=== PATIENT | female | born 1995 | race Hispanic/Latino ===

== ENCOUNTER 2025-05-19 22:02 | Observation (INO) | payer OTHER, SELFPAY ==
[2025-05-19] VITALS (7 sets, daily range): BP systolic 110–118; BP diastolic 70–77; PULSE 67–80; BMI 36.7
--- OUTSIDE RECORDS SUMMARY | 2025-05-19 22:10 | XMS_ITS | Clinical Summary ---
Author Organization [facility] Address [address] [place] [id number] Care Team Providers Care Counter Dish Carrier Name Role Phone None, Provider MD Primary Care Provider Unavaila ble Allergies Active Allergy Reactions Criticality Noted Date Comments Penicillins Hives 08/02/2022 Medications No known medications Active Problems Problem Noted Date Diagnosed Date Contact dermatitis, unspecif ied contact dermatitis type, unspecified trigger 08/02/2022 Estimated Date of Delivery Comme nts Yes 06/26/2025 Resolved Problems Problem Noted Date Diagnosed Date Resolved Date Fever with sore throat 02/09/202108/02 Social History Tobacco Use Types Packs/Day Years Used Date Smoking Tobacco: Never Smokeless Tobacco: Never PHQ-2 Answer Date Recorded PHQ-2 Score - If the patient scores above 3, please move on to questions 3-9 0 02/09/2021 Estimated Date of Delivery Comme nts Yes 06/26/2025 Sex and Gender Information Value Date Recorded Sex Assigned at Female 02/04/2025 10:36 PM CDT Legal Sex Female 12:01 PM CDT Gender Identity Not on file Sexual Orientation Not on file Last Filed Vital Signs Vital Sign Reading Time Taken Comments Blood Pressure 102/63 02/04/2025 10:17 PM CDT Pulse 83 02/04/2025 10:17 PM CDT Temperature 36.2 C (97.2 F) 02/04/2025 10:17 PM CDT Respiratory Rate 20 02/04/2025 10:17 PM CDT Oxygen Saturation 99% 02/04/2025 10:17 PM CDT Inhaled Oxygen Concentration - - Weight 83.6 kg (184 lb 4.9 oz) 02/04/2025 10:17 PM CDT Height 165.1 cm (5' 5) 02/04/2025 10:17 PM CDT Body Mass Index 30.67 02/04/2025 10:17 PM CDT Plan of Treatment Health Maintenance Due Date Last Done Comments Cervical Cancer Screening Pa p Smear (Age 21 to 29) Every 3 Years 1996 Cervical Cancer Screening 1996 Annual Physical 1999 Hepatitis C 2014 DTaP, Tdap and Td Vaccines ( 1 - Tdap) 2015 Hepatitis B Vaccines (1 of 3 - 19+ 3-dose series) 2015 HPV Vaccines (1 - 3-dose SCD M series) 2023 COVID-19 Vaccine (1 - 2023-2 5 season) 2024 Meningococcal B Vaccine Aged Out No l onger eligible based on patient's age to complete this topic Meningococcal Vaccine Aged Out No justin marjan eligible based on patient's age to complete this topic Pneumococcal Vaccine: Pediat rics (0 to 5 Years) and At-Risk Patients (6 to 49 Years) Aged Out No longer eligible b ased on patient's age to complete this topic RSV Immunization or 60+ Years (No Doses Required) Completed RSV Immunizations Under 20 Months Aged Out No longer eligible based on patient's age to complete this topic Insurance GENERIC - COMMERCIAL [facility] Care Teams Counter Dish Carrier Relationship Specialty Start Date End Date None, Provider, PCP - General UNKNOWN PHYSICIAN SPECIALTY 08/02/22
--- OUTSIDE RECORDS SUMMARY | 2025-05-19 22:10 | XMS_ITS | Clinical Summary ---
Author Organization [employer] [facility] [address] Address [address] [place] [address] Care Team Providers Care Neon Light Installer Name Role Phone Unavailable Primary Care Provider Unavailabl e Allergies No known active allergies Medications No known medications Active Problems Estimated Date of Delivery Comme nts Yes 06/26/2025 Date entered mario or to episode creation No known active problems Encounters Date Type Department Care Team Description 05/15/2025 External Device Data STL ABSTRACTION Provider, Abstract 05/14/2025 External Device Data STL ABSTRACTION Provider, Abstract 04/24/2025 External Device Data STL ABSTRACTION Provider, Abstract 04/24/2025 External Device Data STL ABSTRACTION Provider, Abstract 04/09/2025 External Device Data STL ABSTRACTION Provider, Abstract 03/15/2025 1:56 PM CDT - 03/15/2025 11:59 PM CDT Hospital Encounter [facility] [address] [facility] [place] [id number] Nohemi Steward MD Discharge Disposition: Home or Self Care from Last 3 Months Family History Medical History Relation Name Comments Diabetes Maternal Grandmother Lisa Sow Relation Name Status Comments Maternal Grandmother Lisa Sow Alive Social History Tobacco Use Types Packs/Day Years Used Date Smoking Tobacco: Never Smokeless Tobacco: Never Tobacco Cessation:Counseling Given: Not Answered Alcohol Use Standard Drinks/Week Comments Never 0 (1 standard drink = 0.6 oz pur e alcohol) Estimated Date of Delivery Comme nts Yes 06/26/2025 Date entered mario or to episode creation Sex and Gender Information Value Date Recorded Sex Assigned at Not on file Legal Sex Female 8:54 AM CERTIFIED PROFESSIONAL MIDWIFE Gender Identity Not on file Sexual Orientation Not on file Last Filed Vital Signs Vital Sign Reading Time Taken Comments Blood Pressure 94/70 12/13/2024 3:37 PM CERTIFIED PROFESSIONAL MIDWIFE Pulse 87 12/13/2024 3:37 PM CERTIFIED PROFESSIONAL MIDWIFE Temperature 36.4 C (97.6 F) 11/14/2024 9:03 AM CERTIFIED PROFESSIONAL MIDWIFE Respiratory Rate - - Oxygen Saturation 98% 12/13/2024 3:37 PM CERTIFIED PROFESSIONAL MIDWIFE Inhaled Oxygen Concentration - - Weight 81.6 kg (180 lb) 12/13/2024 3:37 PM CERTIFIED PROFESSIONAL MIDWIFE Height 162.6 cm (5' 4) 12/13/2024 3:37 PM CERTIFIED PROFESSIONAL MIDWIFE Body Mass Index 30.9 12/13/2024 3:37 PM CERTIFIED PROFESSIONAL MIDWIFE Plan of Treatment Health Maintenance Due Date Last Done Comments HPV VACCINES (1 - 3-dose series) 2011 DTAP/TDAP/TD VACCINES (1 - Tdap) 2015 HEPATITIS B VACCINES (1 of 3 - 19+ 3-dose series) 04/2015 CERVICAL CANCER SCREENING 2017 HPV/Cotest (21-29) 2017 PAP SMEAR 2017 INFLUENZA VACCINE (#1) 2025 RSV VACCINE (60+ or ) (No Doses Required) Comp leted Procedures Procedure Name Priority Date/Time Associated Diagnosis Comments US OB FOLLOW UP PER FETUS Routine 03/15/2025 2:44 PM CDT Obesity affecting in second trimester, unspecified obesity type from Last 3 Months Results * US OB FOLLOW UP PER FETUS (03/15/2025 2:44 PM CDT) Anatomical Region Laterality Modality Pelvis Ultrasound 03/15/2025 2:12 PM CDT Narrative 03/15/2025 2:41 PM CDT STL FOLLOW UP ----- Pat. Name: ARIELLA CHEUNG Study Date: 03/15/2025 2:12pm Pat. NO: [id number] Referring MD: DIAN CRAIG MD Site: [facility] Refueling Rampman: Yuki Vickers RDMS : 1995 Age: 29 ----- INDICATION ----- Maternal Obesity (BMI<40) Complicating CODING ----- Diagnoses Z3A.25: Weeks of gestation O99.212: Obesity complicating Procedures 26868: Ultrasound, uterus, real time with image documentation, follow up, transabdominal approach per fetus HISTORY ----- OB History 1. Para 0 MATERNAL ASSESSMENT ----- Physical Exam Weight 82 kg. BMI 30.90 kg/m METHOD ----- Transabdominal ultrasound examination ----- Gutierrez . Number of fetuses: 1 DATING ----- LMP on: 08/30/2024 GA by LMP 28 w + 1 d CHRISTOPHER by LMP: 06/06/2025 GA by prior assessment 25 w + 2 d CHRISTOPHER by prior assessment: 06/26/2025 Ultrasound examination on: 03/15/2025 GA by U/S based upon: AC, BPD, EFW, Femur, HC GA by U/S 25 w + 4 d CHRISTOPHER by U/S: 06/24/2025 Method of dating: Restore dating from previous exam Assigned: based on ultrasound (CRL), selected on 11/14/2024 Assigned GA 25 w + 2 d Assigned CHRISTOPHER: 06/26/2025 BIOMETRY ----- BPD 64.5 mm 26w 1d 69% Hadlock OFD 84.1 mm 27w 2d 95% Corrie HC 238.9 mm 26w 0d 52% Hadlock Cerebellum tr 29.6 mm 27w 1d 86% Wright AC 210.2 mm 25w 4d 50% Hadlock Femur 45.8 mm 25w 1d 33% Hadlock HC / AC 1.14 59% Nicolaides Weight Calculation: EFW 816 g 25w 2d 48% Hadlock EFW (lb,oz) 1 lb 13 oz EFW by Hadlock (CPM-CH-EP-FL) Head / Face / Neck Biometry: Architectural Design Lecturer 3.7 mm CM 4.1 mm 4% Nicolaides Extremities / Bony Struc Biometry: FL / BPD 0.71 FL / HC 0.19 FL / AC 0.22 GENERAL EVALUATION ----- Cardiac activity present. FHR 150 bpm. movements: present. Presentation: transverse Placenta: Placental site: anterior Umbilical cord: Cord vessels: 3 vessel cord. Insertion site: placental insertion: normal Amniotic fluid: Amount of AF: normal amount. MVP 4.4 cm. NBA 15.4 cm. Q1 3.4 cm, Q2 3.5 cm, Q3 4.4 cm, Q4 4.1 cm ANATOMY ----- Heart / Thorax 4-chamber view: LT EIF LVOT view: EIF The following structures appear normal: Head / Neck Cranium. Lateral ventricles. Choroid plexus. Midline falx. Cavum septi pellucidi. Cerebellum. Cisterna magna. Heart / Thorax RVOT view. 3-vessel view. Aortic arch view. Bicaval view. High short axis view. Diaphragm. Abdomen Cord insertion. Stomach. Kidneys. Bladder. GROWTH OVERVIEW ----- Exam date GA BPD (mm) HC (mm) AC (mm) FL (mm) HL (mm) EFW (g) 02/13/2025 21w 0d 50.7 64% 191.4 59% 157.7 40% 33.6 26% 380 36% 03/15/2025 25w 2d 64.5 69% 238.9 52% 210.2 50% 45.8 33% 816 48% COMMENT ----- Patient's name and date of were verified by the glove pairer prior to the exam IMPRESSION ----- Impression: - Gutierrez viable intrauterine at 25w 2d in transverse presentation. - Estimated weight is 816 g (48%ile) with abdominal circumference at the 50%ile - Amniotic fluid volume is normal (Amniotic fluid index = 15.4 cm, maximum vertical pocket = 4.4 cm) - Anatomic survey is complete. No major malformations identified within the limitations of ultrasound. - Echogenic focus in the left ventricle An isolated echogenic intracardiac focus (EIF) is a small echogenic area appearing within the cardiac ventricle that has a sonographic brightness equivalent to that of bone. EIF is believed to be a calcification of the ventricular papillary muscle or chordae tendinae and is seen in at least 3-5% of second trimester ultrasound evaluations. When encountered in isolation, EIF is associated with a 1.4-1.8-fold increase in the likelihood of Trisomy 21 over a patient's age-related risk. EIF is seen in 5% of euploid fetuses and in up to 30% of fetuses with Trisomy 21. No other significant associations have been described. EIF is not considered a cardiac malformation, therefore neither echocardiography nor serial ultrasounds are recommended for this indication. The Society for Maternal Medicine has suggested offering aneuploidy screening to women with the finding of isolated EIF. In the setting of low risk NIPT, no additional testing is recommended. Recommendations: - Consider NIPT if patient desires - Follow up as clinically indicated. - Consider follow up US for growth and anatomy at 32 weeks. Thank you for inviting us to participate in your patient's care. Procedure Note Floridalma Corley MD - 03/15/2025 STL FOLLOW UP ----- Pat. Name:Beto CHEUNG Date:03/15/2025 2:12pm Pat. NO: [id number] MD:DIAN CRAIG MD [facility]:Yuki Vickers RDMS :1995Age:29 ----- INDICATION ----- Maternal Obesity (BMI<40) Complicating CODING ----- Diagnoses Z3A.25: Weeks of gestation O99.212: Obesity complicating Procedures 38244: Ultrasound, uterus, real time withimage documentation, follow up, transabdominal approach per fetus HISTORY ----- OB History 1. Para 0 MATERNAL ASSESSMENT ----- Physical Exam Weight 82 kg. BMI 30.90 kg/m METHOD ----- Transabdominal ultrasound examination ----- Gutierrez . Number of fetuses: 1 DATING ----- LMP on:08/30/2024 GA by LMP28 w + 1 d CHRISTOPHER by LMP:06/06/2025 GA by prior numfmpipia59 w + 2 d CHRISTOPHER by prior assessment:06/26/2025 Ultrasound examination on:03/15/2025 GA by U/S based upon:AC, BPD, EFW, Femur, HC GA by U/S25 w + 4 d CHRISTOPHER by U/S:06/24/2025 Method of dating:Restore dating from previous exam Assigned:based on ultrasound (CRL), selected on 11/14/2024 Assigned GA25 w + 2 d Assigned CHRISTOPHER:06/26/2025 BIOMETRY ----- BPD 64.5 mm 26w 1d69% Hadlock OFD 84.1 mm 27w 2d95% Corrie HC 238.9 mm 26w 0d52% Hadlock Cerebellum tr 29.6 mm 27w 1d86% Wright AC 210.2 mm 25w 4d50% Hadlock Femur 45.8 mm 25w 1d33% Hadlock HC / AC 1.14 59%Nicolaides Weight Calculation: EFW 816 g 25w 2d 48%Hadlock EFW (lb,oz) 1 lb 13 oz EFW by Hadlock (YFN-HB-CN-FL) Head / Face / Neck Biometry: Architectural Design Lecturer 3.7 mm CM 4.1 mm 4%Nicolaides Extremities / Bony Struc Biometry: FL / BPD 0.71 FL / HC 0.19 FL / AC 0.22 GENERAL EVALUATION ----- Cardiac activity present. FHR 150 bpm. movements: present.Presentation: transverse Placenta: Placental site: anterior Umbilical cord: Cord vessels: 3 vessel cord. Insertion site: placentalinsertion: normal Amniotic fluid: Amount of AF: normal amount. MVP 4.4 cm. NBA 15.4 cm. Q13.4 cm, Q2 3.5 cm, Q3 4.4 cm, Q4 4.1 cm ANATOMY ----- Heart / Thorax 4-chamber view: LT EIF LVOT view: EIF The following structures appear normal: Head / Neck Cranium. Lateral ventricles. Choroid plexus.Midline falx. Cavum septi pellucidi. Cerebellum. Cisterna magna. Heart / Thorax RVOT view. 3-vessel view. Aortic arch view.Bicaval view. High short axis view. Diaphragm. Abdomen Cord insertion. Stomach. Kidneys. Bladder. GROWTH OVERVIEW ----- Exam date GA BPD (mm) HC (mm) AC (mm) FL(mm) HL (mm) EFW (g) 02/13/2025 21w 0d 50.7 64% 191.4 59% 157.7 40%33.6 26% 380 36% 03/15/2025 25w 2d 64.5 69% 238.9 52% 210.2 50%45.8 33% 816 48% COMMENT ----- Patient's name and date of were verified by the glove pairer prior tothe exam IMPRESSION ----- Impression: - Gutierrez viable intrauterine at 25w 2d in transversepresentation. - Estimated weight is 816 g (48%ile) with abdominal circumference atthe 50%ile - Amniotic fluid volume is normal (Amniotic fluid index = 15.4 cm, maximumvertical pocket = 4.4 cm) - Anatomic survey is complete. No major malformations identified withinthe limitations of ultrasound. - Echogenic focus in the left ventricle An isolated echogenic intracardiac focus (EIF) is a small echogenic areaappearing within the cardiac ventricle that has a sonographic brightness equivalent to that of bone. EIF is believed to be acalcification of the ventricular papillary muscle or chordae tendinae and is seen in at least 3-5% of second trimesterultrasound evaluations. When encountered in isolation, EIF is associated with a 1.4-1.8-fold increase in the likelihood of Trisomy 21over a patient's age-related risk. EIF is seen in 5% of euploid fetuses and in up to 30% of fetuses with Trisomy 21. No othersignificant associations have been described. EIF is not considered a cardiac malformation, therefore neither fetalechocardiography nor serial ultrasounds are recommended for this indication. The Society for Maternal Medicine has suggested offeringaneuploidy screening to women with the finding of isolated EIF. In the setting of low risk NIPT, no additional testing isrecommended. Recommendations: - Consider NIPT if patient desires - Follow up as clinically indicated. - Consider follow up US for growth and anatomy at 32 weeks. Thank you for inviting us to participate in your patient's care. us Nohemi Steward MD ORDERABLES Final Result from Last 3 Months Insurance [facility]
[2025-05-19 22:46] LABS: Add Urine Microscopic? YES; Appearance Urine Clear (Clear); Glucose Urine UA Negative (Negative); Leukocyte Esterase Ur Negative LEU/UL (Negative); Nitrate Urine Negative (Negative); Non Pathogenic Casts 0-2; Specific Grav Ur 1.006 (1.001-1.035)
--- NOTE | 2025-05-19 23:59 | OBADM ---
This patient, Elle Soler, admitted to the OB room OB Post 117 for observation. Patient/family oriented to hospital policies and general routines including ID bracelet, bed and alarms, visiting hours, pain management, procedures, bathroom and other care routines, personal items, smoking policy, room service/diet, and visiting hours. Patient/Family are encouraged to report perceived risks to care and to ask questions if they do not understand what they are told or what they should do.
--- NOTE | 2025-06-11 09:15 | PM.OBTRLD ---
OB - Triage/Final Diagnosis Visit Information Comments/Additional reasons for admission: I have assessed the risk for this patient, Elle Galvan Adam Soler, and determined that she would benefit from observation care. Evaluation Laboratory results: Laboratory Tests 05/19/25 22:33 Urine Color Yellow Urine Appearance Clear Urine pH 6.0 Ur Specific [place] 1.006 Urine Protein Negative Urine Glucose (UA) Negative Urine Ketones Negative Ur Blood (Man) 3+ H Urine Nitrate Negative Urine Bilirubin Negative Urine Urobilinogen 0.2 Leukocyte Esterase Rfl Negative Urine RBC 0-2 Urine WBC 0-5 Ur Squamous Epith Cells None seen Urine Bacteria None seen Urine Casts 0-2 Final Diagnosis (1) Hematuria: Code(s): R31.9 - Hematuria, unspecified Status: Acute
== END 2025-05-20 00:24 | disposition home or self-care (01) ==
PROVIDERS: Admitting Provider Obstetrics & Gynecology; Visit Provider Obstetrics & Gynecology
DX: O99.891 Other specified diseases and conditions complicating pregnancy (principal); R31.9 Hematuria, unspecified; Z3A.34 34 weeks gestation of pregnancy
CPT/HCPCS: 81001; 99199; G0378; G0379

== ENCOUNTER 2025-06-12 13:06 | Outpatient (CLI) | payer OTHER, SELFPAY ==
--- NOTE | ~2025-06-12 | US_ITS ---
EXAMINATION: US OB follow up DATE: 06/12/2025 13:25 INDICATION: Intrauterine growth retardation during third trimester . TECHNIQUE: Real-time ultrasound of the pelvis was performed. The interpreting radiologist was not present for the study. COMPARISON: None. FINDINGS: There is a single living fetus in vertex presentation. The placenta is anterior and not low-lying. heart rate is 124 beats per minute (bpm). The amniotic fluid index is 8.0 cm, which is normal. (5th%-95%: 7.3-23.9 cm at 38 weeks estimated gestational age). The following biometric data were obtained: BPD: 9.0 cm -> 36 weeks 3 days Head circumference: 31.4 cm -> 35 weeks 1 days Abdominal circumference: 32.1 cm -> 36 weeks 0 days Femur length: 7.4 cm -> 37 weeks 4 days Borderline increased cephalic index of 86.9 (normal 70-86). Head circumference to abdominal circumference ratio: 0.98 (normal range 0.92-1.07). Estimated weight: 2926 g (+/-) 439 g or 6 lbs. 7 oz. (+/-) 15 oz. IMPRESSION: 1. Single living fetus in vertex presentation with heart rate of 124 bpm. 2. Gestational age by ultrasound of 36 weeks 2 day(s) +/- 2 week(s) 4 day(s) with ultrasound estimated date of delivery (CHRISTOPHER) of 07/08/2025. Estimated weight is 23rd percentile by Hadlock criteria when 06/26/2025 is used as the CHRISTOPHER. Please correlate with clinical information or earlier ultrasounds for most accurate CHRISTOPHER. 3. Low-normal amniotic fluid index of 8.0 cm. 4. Borderline brachycephaly with cephalic index of 86.9. Reviewed, dictated and finalized at location A. IMPRESSION: 1. Single living fetus in vertex presentation with heart rate of 124 bpm. 2. Gestational age by ultrasound of 36 weeks 2 day(s) +/- 2 week(s) 4 day(s) wi th ultrasound estimated date of delivery (CHRISTOPHER) of 07/08/2025. Estimated we ight is 23rd percentile by Hadlock criteria when 06/26/2025 is used as the CHRISTOPHER. Please correlate with clinical information or earlier ultrasounds for most accu rate CHRISTOPHER. 3. Low-normal amniotic fluid index of 8.0 cm. 4. Borderline brachycephaly with cephalic index of 86.9.
== END 2025-06-12 13:07 | disposition home or self-care (01) ==
LOC: GOSHIMG 13:07
PROVIDERS: PCP Obstetrics & Gynecology; Visit Provider Obstetrics & Gynecology
DX: O36.5990 Maternal care for other known or suspected poor fetal growth, unspecified trimester, not applicable or unspecified (principal); Z3A.00 Weeks of gestation of pregnancy not specified
CPT/HCPCS: 76816

== ENCOUNTER 2025-06-13 12:41 | Outpatient (RCR) | payer OTHER, SELFPAY ==
[2025-06-13 14:34] VITALS: BP 124/79; PULSE 84
== END 2025-06-22 11:23 | disposition other institution (70) ==
LOC: ANHOBOP 12:41
PROVIDERS: Visit Provider Obstetrics & Gynecology
DX: O36.5990 Maternal care for other known or suspected poor fetal growth, unspecified trimester, not applicable or unspecified (principal)
CPT/HCPCS: 59025

== ENCOUNTER 2025-06-17 11:30 | Inpatient (IN) | payer OTHER, SELFPAY ==
[2025-06-17] VITALS (124 sets, daily range): BP systolic 90–167; BP diastolic 43–116; PULSE 65–161; RESP 17; TEMP 36.4–37.4; O2SAT 88–100; BMI 37.0
--- OUTSIDE RECORDS SUMMARY | 2025-06-17 13:05 | XMS_ITS | Clinical Summary ---
Author Organization [facility] Address [address] [place] [address] Care Team Providers Care Front Office Secretary Name Role Phone None, Provider MD Primary [...] COVID-19 Vaccine (1 - 2023-2 5 season) 2025 Meningococcal B Vaccine Aged Out No l [...] complete this topic Insurance GENERIC - COMMERCIAL [facility] Care Teams Front Office Secretary Relationship Specialty Start Date End Date None, Provider, PCP - General UNKNOWN PHYSICIAN SPECIALTY 08/02/22
--- OUTSIDE RECORDS SUMMARY | 2025-06-17 13:05 | XMS_ITS | Clinical Summary ---
Author Organization [employer] [address] [place] [address] Address [address] [place] [address] Care Team Providers Care Shuttle Van Driver Name Role Phone Unavailable Primary Care Provider [...] External Device Data STL ABSTRACTION Provider, Abstract from Last 3 Months Family History Medical [...] on file Legal Sex Female 8:54 AM WOODWIND REEDS CUTTER Gender Identity Not on file Sexual Orientation Not on file Last Filed Vital Signs Vital Sign Reading Time Taken Comments Blood Pressure 94/70 12/13/2024 3:37 PM WOODWIND REEDS CUTTER Pulse 87 12/13/2024 3:37 PM WOODWIND REEDS CUTTER Temperature 36.4 C (97.6 F) 11/14/2024 9:03 AM WOODWIND REEDS CUTTER Respiratory Rate - - Oxygen Saturation 98% 12/13/2024 3:37 PM WOODWIND REEDS CUTTER Inhaled Oxygen Concentration - - Weight 81.6 kg (180 lb) 12/13/2024 3:37 PM WOODWIND REEDS CUTTER Height 162.6 cm (5' 4) 12/13/2024 3:37 PM WOODWIND REEDS CUTTER Body Mass Index 30.9 12/13/2024 3:37 PM WOODWIND REEDS CUTTER Plan of Treatment Health Maintenance Due Date Last Done Comments DTAP/TDAP/TD VACCINES (1 - Tdap) 2015 HEPATITIS B VACCINES (1 of 3 - 19+ 3-dose series) 04/2015 CERVICAL CANCER SCREENING 2017 HPV/Cotest (21-29) 2017 PAP SMEAR 2017 HPV VACCINES (1 - 3-dose SCDM series) 2023 INFLUENZA VACCINE (#1) 2025 RSV VACCINE (60+ or ) (No Doses Required) Comp leted Insurance [facility] [employer]
--- NOTE | 2025-06-17 13:33 | LDADM ---
This patient, Elle Soler, was admitted to Labor/Delivery/Recovery 102 on 06/17/25 at 11:30. Plans for labor, pain management and were discussed with patient. Patient/family oriented to hospital policies and general routines including ID bracelet, bed and alarms, visiting hours, pain management, procedures, bathroom and other care routines, personal items, smoking policy, room service/diet and guest tray routines, security routines, and visiting hours. Patient/Family are encouraged to report perceived risks to care and to ask questions if they do not understand what they are told or what they should do. See OBIX for further documentation.
[2025-06-17 13:43] LABS: Hematocrit 34.6 % (37.0-47.0); Hemoglobin 11.0 g/dL (12.0-15.0); Immature Granulocyte Percent A 0.4 % (0-0.5); Lymphocytes Absolute Auto 1.30 K/mm3 (0.9-3.2); Mean Corpuscular HGB Conc 31.8 g/dl (32-36); Mean Corpuscular Hemoglobin 26.7 pg (26-34); Mean Corpuscular Volume 84.0 fl (80-100); Nucleated Red Blood Cells Absolute Auto 0.000 K/mm3 (0.0-0.012); Nucleated Red Blood Cells Perc 0.0 % (0.0-0.2); Platelet Count Result 235 k/mm3 (150-375); Red Blood Count 4.12 M/mm3 (4.2-5.4); White Blood Count 8.2 K/mm3 (4.5-10.0)
[2025-06-17] MEDS: LACTATED RINGERS 1,000 ML 125 ML IV CONT ×2 (14:27→16:13)
[2025-06-17 14:35] LABS: Syphilis IgG/IgM Antibody Non-Reactive (Nonreactive)
--- NOTE | 2025-06-17 15:02 | P.HP_ITS ---
H&P: HPI History of Present Illness Date/Time: 06/17/25 15:02 Chief Complaint: Contractions Narrative: 30 y/o G1 at 38 5/7 weeks here with contractions. Cervix 4 cm dilated, has been admitted for labor. GBS neg. First bp was 130/99. She has no headache, upper abdominal pain, or visual field changes. Review of Systems Review of Systems: All systems reviewed & are unremarkable except as noted in HPI and below PMFSH Family History Family History Mother Diabetes mellitus Sibling Lupus Social History Social History Smoking status: Never smoker Alcohol intake: never Substance use: never Substance use type: does not use Lack of Transportation: No Lack of Food: Never True Current Housing: I Have Housing Concerned About Future Housing: No Difficulty Paying Gas/Electric Bills: No Difficulty Paying for Meds: No Currently Unemployed: No Education: Bachelor's Degree Difficulty w/ Childcare or Family Care: No Spiritual care concerns: No Meds Home Medications and Allergies Home Medications ?Medication ?Instructions ?Recorded ?Confirmed ?Type No Home Medications 06/13/25 06/17/25 H istory Allergies Allergy/AdvReac Type Severity Reaction Status Date / Time Penicillins Allergy Mild unknown Verified 06/13/25 12:12 Vital Signs Vital Signs - 24 hr 06/17/25 13:01 06/17/25 13:32 06/17/25 13:45 Temperature 99.4 F Pulse Rate 85 Blood Pressure 134/99 H Oxygen Delivery Room Air 06/17/25 14:02 06/17/25 14:31 06/17/25 15:01 Temperature Pulse Rate 88 91 83 Blood Pressure 134/90 137/85 139/92 H Oxygen Delivery Exam Const: Other: Well-developed, well-nourished female in no acute distress. Neck: Other: Neck: Trachea midline, no thyromegaly or masses. Resp: Other: Lungs: Normal respiratory effort. Clear to auscultation bilaterally. Cardio: Other: Heart: Regular rate and rhythm with normal S1-S2. GI: Other: ABD: Soft, nontender, nondistended, gravid. No guarding or rebound tenderness. No hepatosplenomegaly. NST reactive initially, but has just shown a couple variables. TOCO: irregular contractions. : Other: Cervix: 5/80/-2. AROM with meconium-stained fluid. Vertex. IUPC placed. Back/Spine/Pelvis: Other: Back: No CVA tenderness. Skin: Other: Skin: No lesions, rashes or ulcers noted. Extrem: Other: Extremities: nontender with no edema Psych: Other: Mental status grossly normal, with normal mood and affect. H&P: Results Labs Labs: Short CBC 06/17/25 Range/Units 13:07 WBC 8.2 (4.5-10.0) K/mm3 Hgb 11.0 L (12.0-15.0) g/dL Hct 34.6 L (37.0-47.0) % Plt Count 235 (150-375) k/mm3 Assessment and Plan Assessment and plan (1) Term : Code(s): Z34.90 - Encounter for supervision of normal , unspecified, unspecified trimester Status: Acute Assessment and Plan: A: IUP at 38 5/7 weeks with labor. P: IUPC placed. Peds aware of meconium. Will monitor. Expectant management for now. (2) Active labor at term: Status: Acute
[2025-06-17 15:56] LABS: Alanine Aminotransferase 17 U/L (6-35); Albumin Level 3.1 g/dL (3.5-5.1); Alkaline Phosphatase 153 U/L (38-126); Anion Gap 4 mmol/L (4-12); Aspartate Amino Transferase 24 U/L (14-36); Bilirubin,Total < 0.1 mg/dL (0.2-1.3); Blood Urea Nitrogen 14 mg/dL (7-17); Calcium 8.9 mg/dL (8.4-10.2); Carbon Dioxide 22 mmol/L (22-30); Chloride 105 mmol/L (98-107); Estimated CRCL calculation 123 ml/min; Estimated Glomerular Filt Rate > 60; Glucose 84 mg/dL (65-110); Potassium 4.1 mmol/L (3.4-5.0); Sodium 131 mmol/L (137-145); Total Protein 6.1 g/dL (6.3-8.2); Uric Acid 5.8 mg/dL (2.5-7.5)
--- NOTE | 2025-06-17 16:25 | P.PNAN_ITS ---
Anes - Initial Pre Proc Eval Procedure: labor epidural Date/Time: 06/17/25 16:25 Surgeon: Esdras Martinez MD Pre Op Diagnosis: labor pain Pre Op Diagnosis: contractions Patient Data Age: 30 Gender: F Height: 1.63 m Weight: 98 kg Last Vital Signs Temp 37.4 C 06/17/25 15:00 Pulse 84 06/17/25 16:24 BP 152/91 H 06/17/25 16:24 Pulse Ox 99 06/17/25 16:24 O2 Del Method Room Air 06/17/25 13:32 Allergies Allergy/AdvReac Type Severity Reaction Status Date / Time Penicillins Allergy Mild unknown Verified 06/13/25 12:12 Home Medications ?Medication ?Instructions ?Recorded ?Confirmed ?Type No Home Medications 06/13/25 06/17/25 H istory Laboratory Tests 06/17/25 06/17/25 13:07 15:20 WBC 8.2 K/mm3 (4.5-10.0) RBC 4.12 L M/mm3 (4.2-5.4) Hgb 11.0 L g/dL (12.0-15.0) Hct 34.6 L % (37.0-47.0) MCV 84.0 fl (80-100) MCH 26.7 pg (26-34) MCHC 31.8 L g/dl (32-36) RDW 14.3 % (11.5-14.5) Plt Count 235 k/mm3 (150-375) MPV 12.5 H fl (7.4-10.4) Immature Gran % (Auto) 0.4 % (0-0.5) Neut % (Auto) 76.3 H % (45.5-73.1) Lymph % (Auto) 15.9 L % (18.3-44.2) [place] % (Auto) 6.2 % (2.6-8.5) Eos % (Auto) 0.7 % (0-4.4) Baso % (Auto) 0.5 % (0.2-1.2) Lymph # (Auto) 1.30 K/mm3 (0.9-3.2) [place] # (Auto) 0.5 K/mm3 (0.1-0.6) Eos # (Auto) 0.1 K/mm3 (0-0.3) Baso # (Auto) 0.0 K/mm3 (0.0-0.1) Abs Immat Gran (auto) 0.03 K/mm3 (0.00-0.031) Absolute Neuts (auto) 6.3 K/mm3 (1.3-6.7) Absolute Nucleated RBC 0.000 K/mm3 (0.0-0.012) Nucleated RBC % 0.0 % (0.0-0.2) Sodium 131 L mmol/L (137-145) Potassium 4.1 mmol/L (3.4-5.0) Chloride 105 mmol/L (98-107) Carbon Dioxide 22 mmol/L (22-30) Anion Gap 4 mmol/L (4-12) BUN 14 mg/dL (7-17) Creatinine 0.66 L mg/dL (0.7-1.0) Estim Creat Clear Calc 123 ml/min Estimated GFR > 60 (59 - ) Glucose 84 mg/dL (65-110) Uric Acid 5.8 mg/dL (2.5-7.5) Calcium 8.9 mg/dL (8.4-10.2) Total Bilirubin < 0.1 L mg/dL (0.2-1.3) AST 24 U/L (14-36) ALT 17 U/L (6-35) Alkaline Phosphatase 153 H U/L (38-126) Total Protein 6.1 L g/dL (6.3-8.2) Albumin 3.1 L g/dL (3.5-5.1) Syphilis IgG/IgM Ab Non-reactive (Nonreactive) Blood Type O Positive Antibody Screen Negative Patient hx anesthesia problems: none Family hx anesthesia problems: none Results Review: All pre-operative results and documents have been reviewed as part of the pre- operative evaluation. [facility] Family History Family History Mother Diabetes mellitus Sibling Lupus Social History Social History Smoking status: Never smoker Alcohol intake: never Substance use: never Substance use type: does not use Lack of Transportation: No Lack of Food: Never True Current Housing: I Have Housing Concerned About Future Housing: No Difficulty Paying Gas/Electric Bills: No Difficulty Paying for Meds: No Currently Unemployed: No Education: Bachelor's Degree Difficulty w/ Childcare or Family Care: No Spiritual care concerns: No Anes - Eval Final PreProcedure Day of Procedure 06/17/25 16:25 Patient weight: obese ASA classification: II Anesthetic plan: proceed Anesthesia type and monitoring: regional epidural and standard monitoring Results Review: All pre-operative results and documents have been reviewed as part of the pre- operative evaluation. Informed Consent: The patient's anesthetic plan and its attendant risks and benefits were discussed with the patient/family/POA. Questions were solicited and answers provided to the satisfaction of the patient/family/POA.
--- NOTE | 2025-06-17 17:23 | P.PNOB_ITS ---
Pain Control Date/time seen: 06/17/25 17:23 Pain control: epidural Pelvic Exam Dilation (cm): 5 Effacement (%): 80 station: -2 Contractions Contraction pattern: Irregular Status Comments: Reactive with occasional mild variables. Assessment and Plan Plan: continuous present management Comments: Dr. Saab is program manager environmental planning tonight. I have discussed the patient's care with him, and the patient is aware he will be covering.
[2025-06-17] MEDS: OXYTOCIN 30 UNITS/NS 500 ML 30 UNITS/500 ML BAG IV CONT (19:26)
[2025-06-17] MEDS: OXYTOCIN 30 UNITS/NS 500 ML 30 UNITS/500 ML BAG 999 UNITS IV CONT (21:08)
--- NOTE | 2025-06-17 21:24 | P.PCNOB_ITS ---
OB - Vaginal Delivery Note Procedure Delivery date: 06/17/25 Induction method: Per Misoprostol Protocol Delivery augmentation: Rupture of Membranes and Pitocin Delivery monitor: External FHT and Internal Uterine Indication for instrumentation: nonreassuring FHR tracing (prolonged heart deceleration) Episiotomy description: None Laceration Description: Perineal - 3rd Degree Delivery repair: vicryl Specimen: No Quantitative Blood Loss (ml): 300 Anesthesia type: Epidural Disposition: Floor Complications: No immediate complications Narrative: Upon arrival patient was noted to be complete. With pushing attempt, FHT were noted to decelerate into the 70's. Upon entering the room, the FHT had noted to be bradycardic for 2 minutes. Due to heart rate, operative vaginal delivery with foceps was recommended. Patient positioned in stirrups with the bed broken, dorsal lithotomy. Her perineum was prepped and draped in the usual fashion. The perineal body was normal length. Pelvis felt to be adequate. + 3 station. Min/mod caput. Sagital suture palpated and found to be direct A-P plane with possibly 5 degrees rightward axis. Phantom application of blades performed prior to placing left hand into vaginal sidewall. Left blade gently inserted along cherry picker operator's hand to ensure no vag lacerations - advanced along the skull with the axillary prominence in a gentle fashion. In a similar fashion, the right blade was gently placed. Blade placement was then double checked to ensure adequate placement. The forceps shank articulated well in the midline. A fingerbreadth below the suture on either side was noted.? With the next contraction, gentle downward pressure was applied in sync with the contraction / pushing effort. Adequate descent was noted. There were a total of 2 pulls, and the forceps were disarticulated as the head delivered. A nuchal cord x 1 was noted and easily reduced. The remainder of the was delivered atraumatically. A segment of cord taken for gases and sample collected as above. A third degree midline perineal lac was noted. The placenta delivered spontaneously and found to be intact. Routine repair of the 3rd degree laceration with 3-0 vicryl and 2-0 vicryl.? All sponge, lap, and needle counts correct x 2. Patient taken out of lithotomy position and tolerated procedure very well.? NICU present for delivery.? Perineal care & instructions reinforced.? Baby Date of : 06/17/25 Time of : 21:07 Gestational Age by Date: 38 gender: Female presentation: vertex position: Right Occiput Anterior Placenta delivery description: Spontaneous Cord Vessel Description: 3 Vessels and Nuchal Cord
[2025-06-17] MEDS: OXYTOCIN 30 UNITS/NS 500 ML 30 UNITS/500 ML BAG 125 UNITS IV CONT (21:54)
[2025-06-18] VITALS (8 sets, daily range): BP systolic 125–144; BP diastolic 74–91; PULSE 84–102; RESP 16–18; TEMP 36.1–37; O2SAT 98–100
[2025-06-18] MEDS: BENZOCAINE 20% AER SPR (*SP) 56 GM CAN 1 SPRAY TOPICAL (00:10)
[2025-06-18] MEDS: WITCH HAZEL 40 PADS 1 PAD TOPICAL (00:10)
--- NOTE | 2025-06-18 00:22 | OBPPTRN ---
Patient transferred to post room #285 via wheelchair. Support person present. Oriented to unit, room, information board, rooming in, admission packet and security measures. Patient verbalizes understanding.
[2025-06-18 05:05] LABS: Hematocrit 31.0 % (37.0-47.0); Hemoglobin 9.9 g/dL (12.0-15.0)
--- NOTE | 2025-06-18 08:05 | WPDANLDPN2 ---
Anes-Prog Note L&D Date/Time: 06/18/25 08:05 Comfortable throughout: labor and delivery Neuraxial method: epidural Epidural/Spinal procedure site: clean & non-tender Neuro status: Neuro function grossly intact. Cardiovascular status: normal Respiratory status: normal Airway patency: baseline Mental status: baseline Vital Signs: Last Vital Signs Temp 37.0 C 06/18/25 03:35 Pulse 89 06/18/25 03:35 Resp 16 06/18/25 03:35 BP 133/90 06/18/25 03:35 Pulse Ox 99 06/18/25 03:35 O2 Del Method Room Air 06/18/25 00:34 Pain score (VAS): 0 I/O: Intake & Output 06/17/25 06/18/25 06/18/25 23:59 07:59 15:59 Intake Total 3000 Output Total 300 25 Balance 2700 -25 Patient feedback: Patient satisfied with anesthetic care.
[2025-06-18] MEDS: MULTIVIT/MIN/PREN/FOL AC/IRON TABLET 1 TAB PO (08:32)
[2025-06-18] MEDS: DOCUSATE SODIUM 100 MG CAPSULE PO ×2 (08:32→17:20)
--- NOTE | 2025-06-18 09:15 | PC.NURSE ---
Patient is attempting to breastfeed baby. Other than one good feeding after delivery, this baby has not been latching to the breast. Baby is over 12 hours old. Mom has pumped and given expressed milk twice (1-2ml). The truckload checker would like to initiate blood sugars and move forward with the ineffective feeding plan. Discussed with mom the need to pump and supplement if baby is not able to latch and nurse at breast. Baby will root, gape, and hold the nipple in her mouth. Other than a few sucks with initial latch on, baby only holds the nipple in her mouth or lets go and loses the latch. Baby has been using a pacifier and due to the very soft and pliable nature of mom's breasts, baby may be struggling to latch to a nipple that is not rigid. Will review and reinforce the feeding plan today. Discussed plan with primary RN and she agrees with this course of action.
--- NOTE | 2025-06-18 17:15 | PC.NURSE ---
Patient requests assistance. Baby has been supplemented with formula today due to sleepiness and inability to achieve a good . Mom has pumped today. Baby is awake and eager at this time and we begin in cradle hold. Baby makes a good effort to latch but we are not able to maintain a seal. Mom is willing to try the football hold and after a few tries, baby is able to hold the nipple and maintain an appropriate latch. Mom denies pain with the latch. Baby has a wide gape and mom is shown how to observe the wide angle at the corner of her mouth. Baby needs some intermittent stimulation when she has brief pauses in suckling. Mom is encouraged to allow baby to nurse as long as desired and to call for assistance in latching to the other breast if she wants. Primary RN updated.
--- NOTE | 2025-06-18 21:30 | PM.OBPNVD ---
OB - PN: Subj Subjective Date/time seen: 06/18/25 0830 Interval history: Patient in restroom. Vitals reviewed. h/h reviewed. OB - PN: Obj Data Labs 06/18/25 03:44 06/17/25 15:20 Labs: Laboratory Results - last 24 hr 06/18/25 03:44 Hgb 9.9 L Hct 31.0 L OB - PN A/P Time Spent With Patient Time: Total time spent is greater than 50% in coordination of care (as documented) at patient's floor/unit and/or counseling patient:
[2025-06-19 03:56] VITALS: BP 137/88; PULSE 86
[2025-06-19 07:30] VITALS: BP 132/88; PULSE 72; RESP 18; TEMP 36.9; O2SAT 99
[2025-06-19] MEDS: MULTIVIT/MIN/PREN/FOL AC/IRON TABLET 1 TAB PO (09:03)
[2025-06-19] MEDS: DOCUSATE SODIUM 100 MG CAPSULE PO (09:04)
--- NOTE | 2025-06-19 09:42 | P.PNOB_ITS ---
OB - PN: Subj Subjective Date/time seen: 06/19/25 09:42 Interval history: She states she feels good. Patient comments: pain well controlled, tolerating diet and other (Decreasing lochia.) baby status: doing well OB - PN: Obj Data Labs 06/18/25 03:44 06/17/25 15:20 OB - PN A/P Plan day: 2 Plan: discharge home and other Comments: Patient doing well. Follow up 2-3 weeks. Discharge instructions provided. Time Spent With Patient Time: Total time spent is greater than 50% in coordination of care (as documented) at patient's floor/unit and/or counseling patient: Time with patient: less than 15 minutes Exam 2 Psych: Affect: normal affect Other: Abd: fundus firm below umbilicus, nontender Perineum: healing Ext: nontender
--- NOTE | 2025-06-19 09:43 | P.DS_ITS ---
DS: Admitting Diagnosis Discharge Date 06/19/25 Admitting Diagnosis Labor DS: Discharge Diagnosis Discharge Diagnosis (1) Vaginal delivery: Code(s): O80 - Encounter for full-term uncomplicated delivery Status: Acute OB - DS: Summary Hospital Course Hospital Course: She was admitted in labor. She had a forceps assisted delivery. She did well . She had adequate pain control and was ambulating well. She was discharged to home on day 2. OB Procedures : Ultrasound OB Procedures Intrapartum: Forceps to A.C. head OB Procedures: : None Peripartum Data Laceration Description: Perineal - 3rd Degree Episiotomy description: None Time Spent with Patient Time attestation: Total time spent providing and/or coordinating discharge services: Discharge Plan Discharge Attending physician on discharge: Esdras Martinez Consulting providers: Luis E Saab Discharging Clinician: Esdras Martinez Anticipated Discharge Date/Time: 06/19/25 09:58 Patient Disposition: Home Activity: february shower Diet: regular Discharge Instructions: Take daily vitamin. Take ferrous sulfate 325mg once a day. Patient Instructions: Antibiotic Form Patient Language: [place] Stand Alone Forms: General Discharge Information Follow-up/Referrals: Esdras Martinez MD [Physician, [employer]] - Call for Appointment Discharge Medications: New acetaminophen 325 mg Tablet 650 mg PO Q6H PRN (Reason: Mild Pain (1-3) Or Headache) Qty: 20 0RF ibuprofen 600 mg Tablet 600 mg PO Q6H PRN (Reason: Cramping) Qty: 20 0RF No Action No Home Medications Date of admission: 06/17/25 11:30 Primary Care Provider: PHYSICIAN,HEALTHCARE FINANCIAL ANALYST Admitting Provider: Esdras Martinez Attending physician on admission: Esdras Martinez Condition: Stable
--- NOTE | 2025-06-19 10:45 | PC.NURSE ---
Consulted with mother concerning needs and she shared that she is continuing to attempt at breast (2 latches overnight) and then pumping and supplementing. Mother is feeding appropriately for growth of and understands stimulating infant to eat if needed. has had appropriate feedings in the last 24 hours meets the outcomes for weight, output, blood sugar and jaundice at this time. Reviewed need for consistent attempts and frequent pumping for a good milk supply. Reinforced understanding of milk production, transition of milk, signs of adequate intake, transition of stool, prevention/relief of engorgement, plugged ducts, mastitis, community resources, and when to call a provider using the resource of the feeding sheet along with the mom and baby guide. She has the Team phone number if she needs assistance after discharge. She has a breast pump at home. Mother voiced understanding of the information shared, is confident to continue effectively feeding her infant at home, when to call for assistance, denies any additional assistance or education at this time. Reported to the Primary RN.
[2025-06-19 13:18] VITALS: BP 122/80; PULSE 94; RESP 18; TEMP 36.6; O2SAT 100
[2025-06-20 09:12] VITALS: BP 130/76; PULSE 83; RESP 16; TEMP 36.6; O2SAT 100
== END 2025-06-19 13:33 | disposition home or self-care (01) | DRG 768 ==
LOC: ANHLDR 12:54 → ANHOB2 06-18 00:24
PROVIDERS: Student in an Organized Health Care Education/Training Program; Admitting Provider Obstetrics & Gynecology; Visit Provider Obstetrics & Gynecology
DX: O69.81X0 Labor and delivery complicated by cord around neck, without compression, not applicable or unspecified (principal); Z37.0 Single live birth; O70.20 Third degree perineal laceration during delivery, unspecified; Z3A.38 38 weeks gestation of pregnancy; O76 Abnormality in fetal heart rate and rhythm complicating labor and delivery; O77.0 Labor and delivery complicated by meconium in amniotic fluid; O13.4 Gestational [pregnancy-induced] hypertension without significant proteinuria, complicating childbirth
CPT/HCPCS: 36415; 80053; 84550; 85014; 85018; 85025; 86593; 86850; 86900; 86901; A9270; J2590; J2795; J7120

== ENCOUNTER 2025-08-08 10:03 | Outpatient (CLI) | payer OTHER, SELFPAY ==
--- NOTE | ~2025-08-08 | US_ITS ---
Examination: US abdomen complete Clinical History: R10.10 - Upper abdominal pain, unspecified . Comparison: None Technique: Complete abdominal sonography Findings: Liver: Normal size. Normal echotexture. No intrahepatic biliary ductal dilatation. Normal hepatopedal flow main portal vein. Common duct: Normal caliber, 4 mm. Gallbladder: Stones. No wall thickening. No pericholecystic fluid. Negative sonographic Marino's sign per technologist report. Spleen: Unremarkable. Pancreas: Mostly obscured by bowel gas. Kidneys: Unremarkable. Aorta: No aneurysmal dilatation. Retrohepatic IVC: Unremarkable. IMPRESSION: 1. No acute findings. 2. Gallstones. No evidence of acute cholecystitis. Reviewed, dictated and finalized at location R.
== END 2025-08-08 10:04 | disposition home or self-care (01) ==
LOC: GOSHIMG 10:04
PROVIDERS: PCP Nurse Practitioner Family; Visit Provider Nurse Practitioner Family
DX: K80.20 Calculus of gallbladder without cholecystitis without obstruction (principal)
CPT/HCPCS: 76700